=== PATIENT | male | born 1955 | race Caucasian/White ===

== ENCOUNTER → 2017-12-14 | Outpatient (CLI) | payer BC, MEDICARE ==
[2017-12-14 14:48] LABS: INTERNATIONAL NORMALIZED RATIO 2.9 RATIO
== END ==
LOC: CLAB 14:14
DX: R79.1 Abnormal coagulation profile (principal); Z51.81 Encounter for therapeutic drug level monitoring; Z79.01 Long term (current) use of anticoagulants
CPT/HCPCS: 36415; 85610

== ENCOUNTER → 2017-12-18 | Outpatient (CLI) | payer BC, MEDICARE ==
[2017-12-18 12:21] LABS: INTERNATIONAL NORMALIZED RATIO 2.6 RATIO
== END ==
LOC: CLAB 11:38
DX: R79.1 Abnormal coagulation profile (principal); Z79.01 Long term (current) use of anticoagulants; Z51.81 Encounter for therapeutic drug level monitoring
CPT/HCPCS: 36415; 85610

== ENCOUNTER → 2017-12-20 | Outpatient (CLI) | payer BC, MEDICARE ==
[2017-12-20 07:56] LABS: INTERNATIONAL NORMALIZED RATIO 3.2 RATIO; PROTHROMBIN TIME - PATIENT 32.2 SEC (9.8-11.6)
== END ==
LOC: CLAB 07:32
DX: R79.1 Abnormal coagulation profile (principal); Z51.81 Encounter for therapeutic drug level monitoring; Z79.01 Long term (current) use of anticoagulants
CPT/HCPCS: 36415; 85610